=== PATIENT | female | born 1950 | race Caucasian/White ===

== ENCOUNTER 2017-04-10 01:04 | Emergency (ER) | payer BC ==
[2017-04-10] MEDS ORDERED: Ondansetron INJ* 2 MG/ML VIAL IV ONE (02:20)
[2017-04-10] MEDS ORDERED: NS 0.9% 1000 ML* 2,000 ML IV ONE (02:20)
[2017-04-10] MEDS ORDERED: Morphine INJ* 4 MG/ML 1 ML SYRINGE IV ONE (02:20)
[2017-04-10] MEDS ORDERED: Pantoprazole IV* 40 MG IV ONE (02:20)
[2017-04-10 02:50] LABS: Hematocrit 36 % (35-47); Hemoglobin 12.1 g/dl (12.0-16.0); Mean Corpuscular HGB Conc 33 g/dl (31-36); Mean Corpuscular Hemoglobin 31 pg (27-31); Mean Corpuscular Volume 94 fL (80-97); Mean Platelet Volume 9 um3 (7.4-10.4); Red Blood Count 3.86 10^6/ul (4.0-5.4); Red Cell Distribution Width 13 % (10.5-15); White Blood Count 9.8 10^3/ul (3.5-10.8)
[2017-04-10 03:07] LABS: ALT 43 U/L (7-52); AST 90 U/L (13-39); Albumin 3.8 g/dL (3.2-5.2); Alkaline Phosphatase 64 U/L (34-104); Amylase 76 U/L (29-103); Anion Gap 7 mmol/L (2-11); BUN/Creatinine Ratio 24.4 (8-20); Blood Urea Nitrogen 22 mg/dL (6-24); C Reactive Protein < 1.00 mg/L (< 5.00); CO2 Carbon Dioxide 25 mmol/L (22-32); Calcium 9.3 mg/dL (8.6-10.3); Chloride 103 mmol/L (101-111); EGFR African American 81.1 (>60); Globulin 2.6 g/dL (2-4); Glucose 128 mg/dL (70-100); Lipase 49 U/L (11.0-82.0); Potassium 3.5 mmol/L (3.5-5.0); Sodium 135 mmol/L (133-145); Total Protein 6.4 g/dL (6.4-8.9)
[2017-04-10] MEDS ORDERED: Iohexol 300* (CONTRAST) 10 ML SDV IV ONE (04:16)
[2017-04-10] MEDS ORDERED: oxyCODONE/Acetamin 5/325 MG* TAB PO ONE (05:39)
[2017-04-10 06:12] VITALS: BP 109/64
--- NOTE | 2017-04-10 06:13 | ED ---
Miguelina Patel Alok, scribed for Addi Villanueva MD on 04/10/17 at 0327 . Abdominal Pain/Female - HPI Summary HPI Summary: 66F presents to the ED with a sudden onset of abd an pack pain at 2200 this afternoon. Pt describes her abd pain as diffuse, slightly worse on the right side than the left. Pt describes her back pain as an aching Pt also notes N/V. Pt denies CP, SOB, dypnea, fever, chills, dysuria, or blood in stools. Pt states she has had diarrhea for the past few weeks which has subsided a few days ago. Pt denies fall or direct trauma. PMHx includes h/o colon CA 5 years ago treated since. Pt does not take anticoagulant medications. Pt has NKDA. - History of Current Complaint Chief Complaint: EDAbdPain Stated Complaint: STOMACH AMD BACK PAIN Time Seen by Provider: 04/10/17 02:01 Hx Obtained From: Patient Onset/Duration: Sudden Onset, Lasting Hours, Still Present Timing: Constant Severity Initially: Moderate Severity Currently: Moderate Pain Intensity: 8 Pain Scale Used: 0-10 Numeric Location: Diffuse Radiates: Yes Radiates to: Back Aggravating Factor(s): Nothing Alleviating Factor(s): Nothing Associated Signs and Symptoms: Positive: Back Pain, Nausea, Vomiting. Negative : Fever, Blood in Stool, Urinary Symptoms Allergies/Adverse Reactions: Allergies Allergy/AdvReac Type Severity Reaction Status Date / Time No Known Allergies Allergy Verified 03/26/17 09:40 PMH/Surg Hx/FS Hx/Imm Hx Endocrine/Hematology History: Denies: Hx Diabetes Cardiovascular History: Denies: Hx Hypertension GI History: Reports: Other GI Disorders - colon /rectal ca - Cancer History Cancer Type, Location and Year: colon, rectal 2010 with radiation, chemo, surgery. last chemo 12/2011 Hx Chemotherapy: Yes - last dose 2011, COLORECTAL Hx Radiation Therapy: Yes - 2010, COLORECTAL - Surgical History Surgery Procedure, Year, and Place: COLON CA 2011 bowel resection,ileostomy reversed Infectious Disease History: No Infectious Disease History: Denies: Traveled Outside the [place] in Last 30 Days - Family History Known Family History: Positive: Other - No- Breast CA - Social History Occupation: Retired Lives: With Family Alcohol Use: None Substance Use Type: Reports: None Smoking Status (MU): Never Smoked Tobacco Review of Systems Negative: Fever, Chills Negative: Chest Pain Negative: Shortness Of Breath, Other - dyspnea Positive: Abdominal Pain, Vomiting, Nausea. Negative: Diarrhea, Other - blood in stool Negative: dysuria Positive: Other - back pain All Other Systems Reviewed And Are Negative: Yes Physical Exam - Summary Physical Exam Summary: The patient is well-nourished in no acute distress and mild pain distress The skin is warm and dry and skin is mildly pale. HEENT: The head is normocephalic and atraumatic. The pupils are equal and reactive. The conjunctivae are clear and without drainage. Nares are patent and without drainage. Mouth reveals moist mucous membranes and the throat is without erythema and exudate. The external ears are intact. The ear canals are patent and without drainage. The tympanic membranes are intact. Neck is supple with full range of motion and non-tender. There are no carotid bruits. There is no neck vein distension. Respiratory: Chest is non-tender. Lungs are clear to auscultation and breath sounds are symmetrical and equal. Cardiovascular: Heart is regular rate and rhythm. There is no murmur or rub auscultated. There is no peripheral edema and pulses are symmetrical and equal. Abdomen: The abdomen is soft with epigastric right lower quadrant tenderness with no right upper quadrant tenderness and no distention.. There are normal bowel sounds heard in all four quadrants and there is no organomegaly palpated. Musculoskeletal: There positive right-sided CVA tenderness. Extremities are non -tender with full range of motion. There is good capillary refill. There is no peripheral edema or calf tenderness elicited. Neurological: Patient is alert and oriented to person, place and time. The patient has symmetrical motor strength in all four extremities. Cranial nerves are grossly intact. Deep tendon reflexes are symmetrical and equal in all four extremities. Psychiatric: The patient has an appropriate affect and does not exhibit any anxiety or depression. Triage Information Reviewed: Yes Vital Signs On Initial Exam: Initial Vitals Temp Pulse Resp BP Pulse Ox 98.7 F 60 20 151/63 100 04/10/17 01:07 04/10/17 01:07 04/10/17 01:07 04/10/17 01:04/10/17 01:07 Vital Signs Reviewed: Yes - Yohana Coma Scale Coma Scale Total: 15 Diagnostics - Vital Signs Vital Signs Temp Pulse Resp BP Pulse Ox 04/10/17 02:54 14 04/10/17 02:30 53 11 143/66 99 04/10/17 02:00 53 137/54 99 04/10/17 01:34 57 99 04/10/17 01:33 131/73 04/10/17 01:32 98.1 F 56 16 131/73 98 04/10/17 01:07 98.7 F 60 20 151/63 100 - Laboratory Lab Results: Lab Results 04/10/17 04/10/17 Range/Units 02:35 02:35 WBC 9.8 (3.5-10.8) 10^3/ul RBC 3.86 L (4.0-5.4) 10^6/ul Hgb 12.1 (12.0-16.0) g/dl Hct 36 (35-47) % MCV 94 (80-97) fL MCH 31 (27-31) pg MCHC 33 (31-36) g/dl RDW 13 (10.5-15) % Plt Count 222 (150-450) 10^3/ul MPV 9 (7.4-10.4) um3 Neut % (Auto) 86.5 H (38-83) % Lymph % (Auto) 5.3 L (25-47) % Stearns % (Auto) 4.9 (1-9) % Eos % (Auto) 0.4 (0-6) % Baso % (Auto) 2.9 H (0-2) % Absolute Neuts (auto) 8.5 H (1.5-7.7) 10^3/ul Absolute Lymphs (auto) 0.5 L (1.0-4.8) 10^3/ul Absolute Monos (auto) 0.5 (0-0.8) 10^3/ul Absolute Eos (auto) 0 (0-0.6) 10^3/ul Absolute Basos (auto) 0.3 H (0-0.2) 10^3/ul Absolute Nucleated RBC 0 10^3/ul Nucleated RBC % 0 Lactic Acid 1.0 (0.5-2.0) mmol/L Result Diagrams: 04/10/17 02:35 04/10/17 02:35 Lab Statement: Any lab studies that have been ordered have been reviewed, and results considered in the medical decision making process. - CT abd/pel CT CT Interpretation: Positive (See Comments) - IMPRESSION: Mild to moderate right hydronephrosis appears chronic. Mild left hydronephrosis also likely chronic. No inflammatory process identified in the abdomen or pelvis. No abdnominal mass , adenopathy or collection seen. Distended gallbladder. No pericholecystic inflammatory changes are seen. Consider futher violation. CT Interpretation Completed By: Radiologist - EKG 0153 Cardiac Rate: Bradycardia - 51 bpm EKG Rhythm: Sinus Rhythm EKG Interpretation: Normal axis. No ST elevation Abdominal Pain Fem Course/Dx - Course Course Of Treatment: 66 y/o female presents with sudden onset of abd pain radiating to the back. CT done shows right ureteral calculus. Will dx with urine strainer and instructions to FU with PCP. - Diagnoses Differential Diagnosis: Positive: Bowel Obstruction, Diverticulitis, Pancreatitis, Peptic Ulcer Disease, Renal Colic Provider Diagnoses: Right ureteral calculus Discharge - Discharge Plan Condition: Stable Disposition: HOME Prescriptions: oxyCODONE/Acetamin 5/325 MG* [Percocet 5/325 TAB*] 1 tab PO Q6H PRN #20 tab MDD 4 PRN Reason: pain Patient Education Materials: How to Strain Your Urine (ED), Kidney Stones (ED) , Renal Colic (ED) Referrals: Lacy Boland MD [Primary Care Provider] - The documentation as recorded by the Miguelina curran Alok accurately reflects the service I personally performed and the decisions made by me, Addi Villanueva MD.
--- NOTE | 2017-04-10 08:09 | RAD ---
CLINICAL HISTORY: Epigastric pain. Surgical history includes rectal cancer with bowel resection, ostomy creation and ostomy reversal. COMPARISON: Most recent comparison CT is dated March 26, 2017 TECHNIQUE: Contrast enhanced CT examination of the abdomen and pelvis from the lung bases through the initial tuberosities. The patient received 88 mL Omnipaque 300 intravenously prior to imaging.The patient received oral contrast as well prior to imaging. FINDINGS: VISUALIZED LUNG BASES: The visualized lung bases are grossly clear. There is no pleural effusion. ABDOMEN AND PELVIS: The liver, spleen, pancreas and adrenal glands are grossly normal in appearance. The gallbladder is normal. At the right lower kidney there is a 4 mm calcification unchanged from the previous CT exam. At the upper pole of the left kidney there is a low-density structure most likely representing a cyst but with a density slightly greater than that of simple fluid There are contrast has progressed as far as the small bowel. Breast MRI surgical material is seen at the right of midline lower abdomen. There is no gross retroperitoneal or mesenteric lymphadenopathy. The pelvic viscera is normal in appearance. The abdominal aorta and iliac arteries are normal in course and diameter. Multilevel degenerative changes of the lower thoracic and lumbar spine includes loss of intervertebral disc height, marginal osteophyte formation, vacuum disc phenomenon and endplate sclerosis.There are no sinister bone lesions. IMPRESSION: 1. There is mild fullness of the right renal collecting system, new since the previous CT examination, but without renal calculus or other obstructing entity in the right ureter. 2. Chronic, degenerative and iatrogenic findings described in the body the report.
== END 2017-04-10 06:10 | disposition home or self-care (01) ==
LOC: ED 01:04
DX: N20.1 Calculus of ureter (principal); Z85.038 Personal history of other malignant neoplasm of large intestine
CPT/HCPCS: 36415; 74177; 80053; 82150; 83605; 83690; 84484; 85025; 86140; 93005; 96360; 96374; 96375; 99284; A9270-GY; J2270; J2405

== ENCOUNTER 2017-05-01 18:11 | Emergency (ER) | payer BC ==
--- NOTE | 2017-05-01 18:16 | UC ---
Minor Trauma HPI - HPI Summary HPI Summary: 66 YEAR OLD FEMALE PRESENTS WITH COMPLAINS OF FALLING DOWN A FLIGHT OF STAIRS AND INJURING HER LEFT FOOT AND RIGHT KNEE. - History of Current Complaint Stated Complaint: PT FELL DOWN STAIRS LT ANKLE/FOOT AND RIGHT KNEE Time Seen by Provider: 05/01/17 18:16 Hx Obtained From: Patient Onset/Duration: Sudden Onset Severity Initially: Moderate Severity Currently: Moderate Pain Scale Used: 0-10 Numeric - 7 Mechanism Of Injury: Fall From Height Of: - FLIGHT OF STAIRS Aggravating Factor(s): Weight Bearing Alleviating Factor(s): Rest - Allergies/Home Medications Allergies/Adverse Reactions: Allergies Allergy/AdvReac Type Severity Reaction Status Date / Time No Known Allergies Allergy Verified 05/01/17 18:28 PMH/Surg Hx/FS Hx/Imm Hx Previously Healthy: Yes - Surgical History Surgical History: Yes Surgery Procedure, Year, and Place: COLON CA 2012 bowel resection,ileostomy reversed - Family History Known Family History: Positive: Other - No- Breast CA - Social History Alcohol Use: None Substance Use Type: None Smoking Status (MU): Never Smoked Tobacco Review of Systems Constitutional: Negative Skin: Negative Eyes: Negative ENT: Negative Respiratory: Negative Cardiovascular: Negative Gastrointestinal: Negative Genitourinary: Negative Motor: Negative Neurovascular: Negative Musculoskeletal: Myalgia, Other: - RIGHT KNEE PAIN/SWELLING LEFT FOOT PAIN Neurological: Negative Psychological: Negative All Other Systems Reviewed And Are Negative: Yes Physical Exam Triage Information Reviewed: Yes Eye Exam: Normal ENT Exam: Normal Dental Exam: Normal Neck exam: Normal Neck: Positive: 1 Respiratory Exam: Normal Cardiovascular Exam: Normal Abdominal Exam: Normal Musculoskeletal Exam: Normal Musculoskeletal: Positive: Other: - RIGHT KNEE SWELLING LEFT FOOT PAIN Neurological Exam: Normal Psychological Exam: Normal Skin Exam: Normal Minor Trauma Course/Dx - Differential Dx/Diagnosis Provider Diagnoses: RIGHT KNEE SWELLING. LEFT FOOT PAIN Discharge - Discharge Plan Condition: Stable Disposition: HOME Prescriptions: Meloxicam(NF) [Mobic(NF)] 7.5 mg PO BID #30 tab Patient Education Materials: Foot Sprain (ED), Knee Pain (ED), Avulsion Fracture (ED) Referrals: Clifford Louis MD [Medical Doctor] - Lacy Boland MD [Primary Care Provider] -
[2017-05-01 18:28] VITALS: BP 130/60
--- NOTE | 2017-05-01 19:18 | RAD ---
INDICATION: Right knee injury. TECHNIQUE: 4 views of the right knee were obtained. FINDINGS: The bones are normal alignment. There is a small joint effusion present. No fracture is seen. There is moderate osteoarthritic change in the medial compartment. IMPRESSION: SMALL JOINT EFFUSION, NO FRACTURE IS SEEN.
--- NOTE | 2017-05-01 19:20 | RAD ---
INDICATION: Left foot injury. TECHNIQUE: 3 views of the left foot were obtained. FINDINGS: There is soft tissue swelling present along the dorsal aspect of the foot. There are small avulsion fracture fragments arising from the dorsal talus and dorsal navicular bones. Joint spaces appear maintained. IMPRESSION: SMALL AVULSION FRACTURE FRAGMENTS ARISING FROM THE DORSAL TALUS AND NAVICULAR BONES.
== END 2017-05-01 19:46 | disposition home or self-care (01) ==
LOC: UCCORT 18:11
DX: M25.461 Effusion, right knee (principal); M79.672 Pain in left foot
CPT/HCPCS: 99213; G0463